=== PATIENT | female | born 1945 | race Caucasian/White ===

== ENCOUNTER → 2017-02-08 | Outpatient (CLI) | payer OTHER ==
[~2017-02-08] MED LIST: AROMASIN25 MG PO; DIOVAN 80 MG TA80 M1 PO; EFFEXOR 5050 MG/1 T1 PO; LIPITOR40 MG PO; XANAX1 MG PO
[2017-02-08 09:47] VITALS: BP 107/54; BP 98/59
[2017-02-08 12:15] VITALS: BP 108/56; BP 114/72; BP 98/59
[2017-02-08 14:29] VITALS: BP 114/72; BP 124/70; BP 94/67
== END ==
LOC: OPONC 08:09
DX: D64.9 Anemia, unspecified (principal); C50.919 Malignant neoplasm of unspecified site of unspecified female breast; R31.9 Hematuria, unspecified; D69.6 Thrombocytopenia, unspecified
CPT/HCPCS: 91030

== ENCOUNTER → 2017-02-17 | Outpatient (CLI) | payer OTHER ==
[2017-02-17 14:25] VITALS: BP 121/60; BP 129/60
== END ==
LOC: OPONC 06:20
DX: C50.412 Malignant neoplasm of upper-outer quadrant of left female breast (principal); Z17.0 Estrogen receptor positive status [ER+]
CPT/HCPCS: 91030

== ENCOUNTER 2017-02-27 21:51 | Emergency (ER) | payer OTHER ==
[~2017-02-27] VITALS: Ht 160 cm; Wt 63.5 kg
[~2017-02-27 21:51] MED LIST changes: +ALDACTONE25 MG PO; +IBRANCE75 MG PO
[2017-02-27 22:44] LABS: ABSOLUTE NEUTROPHILS 0.5 thou/uL (1.4-8.2); BASOPHILS 0.4 % (0.0-2.0); EOSINOPHILS 0.3 % (0.0-3.0); PLATELET COUNT 30 thou/uL (150-400); RBC 2.52 mil/uL (4.20-5.00)
[2017-02-27 22:46] LABS: HEMATOCRIT 21.6 % (37.0-47.0); HEMOGLOBIN 7.7 gm/dL (12.0-15.0); LYMPHOCYTES 70.8 % (24.0-44.0); MCH 30.4 pg (26.0-34.0); MCHC 35.4 g/dL (28.0-37.0); MCV 85.8 fL (80.0-100.0); MONOCYTES 2.5 % (1.0-8.0); RDW 16.2 % (10.5-14.5)
[2017-02-27 22:49] LABS: MANUAL DIFF NO
[2017-02-27 22:50] LABS: WBC 1.8 thou/uL (4.0-11.0)
[2017-02-27 22:52] LABS: CALCIUM 7.3 mg/dL (8.5-10.1); CREATININE 1.5 mg/dL (0.6-1.0); POTASSIUM 3.6 mmol/L (3.5-5.1)
[2017-02-27 23:13] LABS: ANISOCYTOSIS 1+; PLATELET ESTIMATE DECREASED
== END 2017-02-27 23:47 | disposition home or self-care (01) ==
LOC: ER 21:51
PROVIDERS: Nurse Practitioner
DX: S00.90XA Unspecified superficial injury of unspecified part of head, initial encounter (principal); D64.9 Anemia, unspecified; D72.819 Decreased white blood cell count, unspecified; F41.9 Anxiety disorder, unspecified; E78.00 Pure hypercholesterolemia, unspecified; I10 Essential (primary) hypertension; Z85.3 Personal history of malignant neoplasm of breast; Z90.13 Acquired absence of bilateral breasts and nipples; Z98.890 Other specified postprocedural states; W18.09XA Striking against other object with subsequent fall, initial encounter; Y93.E1 Activity, personal bathing and showering; Y92.091 Bathroom in other non-institutional residence as the place of occurrence of the external cause; Y99.8 Other external cause status

== ENCOUNTER → 2017-03-08 | Outpatient (CLI) | payer OTHER ==
[2017-03-08 14:45] VITALS: BP 125/63; BP 128/71
== END ==
LOC: OPONC 08:20
DX: C50.412 Malignant neoplasm of upper-outer quadrant of left female breast (principal); D69.6 Thrombocytopenia, unspecified
CPT/HCPCS: 91030